=== PATIENT | female | born 1970 | race Caucasian/White ===

== ENCOUNTER 2020-10-08 14:30 | Day surgery (SDC) | payer OTHER, BC ==
[~2020-10-08] VITALS: Ht 175.3 cm; Wt 124.7 kg
--- NOTE | ~2020-10-08 | O ---
[facility] [place] [address] OPERATIVE REPORT Name: ЕКАТЕРИНА TUTTLE Room #: 150-2 [facility]..#: [id number] Admission: 10/08/20 Attend Phys: David Piedra MD Discharge: Date of : 68 Report #: [id number] THIS REPORT FOR: cc: FAM - Family physician unknown FAM - Family physician unknown David Piedra MD ~ DATE OF SERVICE: 10/08/2020 PREOPERATIVE DIAGNOSIS: Right posterior tibial tendon dysfunction, stage 2. POSTOPERATIVE DIAGNOSIS: Right posterior tibial tendon dysfunction, stage 2. PROCEDURES: 1. Right posterior tibial tendon repair. 2. Right flexor digitorum longus tendon transfer. 3. Right calcaneal osteotomy. SURGEON: Dr. David Piedra. NUCLEAR MEDICINE OFFICER: Elva Alas. ANESTHESIA: General. ESTIMATED BLOOD LOSS: Minimal. DRAINS: No drains. TOURNIQUET TIME: One hour. DESCRIPTION OF PROCEDURE: The patient brought to the operating room where she was placed under general anesthesia. Once under adequate general anesthesia, her right lower extremity was prepped and draped in sterile manner. The extremity was elevated, exsanguinated and tourniquet placed to 300 mmHg. A lateral incision over the posterior tuberosity of the calcaneus was made, approximately 4 cm length was dissected down through soft tissue to the lateral wall of the calcaneus. The periosteum was elevated off of the lateral wall of the calcaneus and Hohmann retractors were placed. A sagittal saw was then used to transect the calcaneus. This was then completed with a large osteotome and translated medially approximately 1 cm. Fixation was then achieved with a single 7.3 mm cannulated screw placed under fluoroscopic guidance. A bone tamp was then utilized to tamp down the lateral wall of the calcaneus to smooth that out. The wound was then irrigated copiously and closed with 2-0 Vicryl in subcutaneous tissues and jhony for the skin. We then proceeded with a medial incision over the insertion of the posterior tibial tendon onto the navicular. This was approximately 6 cm in length. The incision was taken down to the [address] [address] OPERATIVE REPORT Name: ЕКАТЕРИНА TUTTLE Room #: 150-2 [facility] M.R.#: [id number] Admission: 10/08/20 Attend Phys: David Piedra MD Discharge: Date of : 68 Report #: [id number] posterior tibial tendon sheath, which was incised and exposing the posterior tibial tendon did have tears with noted hematoma about the tendon. This was debrided. The floor of the posterior tibial tendon sheath was then opened exposing the flexor digitorum longus tendon, which was then subsequently exposed and incised just at the master knot of [place] and brought into the wound. The flexor digitorum longus tendon was tagged with a 2-0 Vicryl suture. A drill hole over a guidewire was then placed through the tarsal navicular and subsequently the flexor digitorum longus tendon was advanced through the tarsal navicular and fixed into place with the Bio-Tenodesis screw. Excellent fixation was achieved. The posterior tibial tendon was then repaired with 0 Ethibond suture and the suture repaired as well to the flexor digitorum longus tendon. Excellent repair was achieved in this manner. The wound was then irrigated copiously and closed with 0 Ethibond in the retinacular layer, 2-0 Vicryl in subcutaneous tissues and jhony were used for the skin. The wound was dressed with Xeroform, 4 x 4s, and sterile soft compressive dressing with a short leg cast was placed. Tourniquet was let down approximately one hour. Toes were pink and warm with good capillary refill. There were no complications from the procedure. The patient tolerated the procedure well and was taken to recovery room without incident. By: [id number] David Piedra MD /nt
[~2020-10-08 14:30] MED LIST changes: -ASPIRIN EC325 M1 PO; -PERCOCET 7.5-31 EAC1 PO
[2020-10-08 14:40] VITALS: BP 146/92
[2020-10-08] MEDS ORDERED: PERCOCET 7.5-31 EAC1 PO (16:30)
[2020-10-08] MEDS ORDERED: ASPIRIN EC325 M1 PO (16:31)
[2020-10-08 16:54] VITALS: BP 146/92
== END 2020-10-08 16:54 | disposition home or self-care (01) ==
LOC: OR 14:30 → TBA 14:39 → OR 15:29
PROVIDERS: ATTEND Orthopaedic Surgery Foot and Ankle Surgery
DX: M76.821 Posterior tibial tendinitis, right leg (principal); M25.571 Pain in right ankle and joints of right foot; M21.41 Flat foot [pes planus] (acquired), right foot; M21.42 Flat foot [pes planus] (acquired), left foot; I10 Essential (primary) hypertension; Z98.890 Other specified postprocedural states; Z85.828 Personal history of other malignant neoplasm of skin; Z79.899 Other long term (current) drug therapy; Z79.82 Long term (current) use of aspirin
CPT/HCPCS: 50010; 50101; 50386; 50951; 51412; 52120; 53400; 56524; 56526; 56528; 57091; 57181; 62110; 62900; 70005

== ENCOUNTER → 2020-10-08 | Outpatient (CLI) | payer OTHER, BC ==
[~2020-10-08] MED LIST: ASPIRIN EC325 M1 PO; CINNAMON500 MG PO; FISH OIL 1,0001 EAC9 PO; PERCOCET 7.5-31 EAC1 PO; TYLENOL325 MG PO; VITAMIN C500 M1 PO; VITAMIN D350 MCG PO; ZESTRIL40 MG PO
== END ==
LOC: LAB 07:46
PROVIDERS: ATTEND Student in an Organized Health Care Education/Training Program
DX: Z01.812 Encounter for preprocedural laboratory examination (principal); Z20.828 Contact with and (suspected) exposure to other viral communicable diseases